=== PATIENT | female | born 2000 | race Caucasian/White ===

== ENCOUNTER 2022-11-03 12:32 | Emergency (ER) | payer OTHER, SELFPAY ==
[2022-11-03 12:43] VITALS: BP 132/69; PULSE 105; RESP 18; TEMP 36.9; O2SAT 97; BMI 23.1
--- NOTE | 2022-11-03 13:19 | USR_ITS ---
PROCEDURE INFORMATION: Exam: US , Limited Exam date and time: 11/03/2022 1:34 PM Age: 22 years old Clinical indication: complicated by abdominal or pelvic pain; Lower; Second trimester (14 weeks 0 days to 27 weeks 6 days); Gestational age or lmp: 15w4d; ; Additional info: 15 weeks gestation and abd pain LABS AND CLINICAL REPORTS: Last menstrual period start date: 07/17/2022 Gestational age (Established): 15 w 4 d Estimated due date (Established): 04/23/2023 TECHNIQUE: Imaging protocol: Real-time ultrasound of the maternal uterus with image documentation. Exam focused on the clinical indication. COMPARISON: No relevant prior studies available. FINDINGS: Gestation: Single live intrauterine gestation. heart rate: 150 bpm. presentation: Breech Placenta: Anterior grade 0 placenta without previa. No subchorionic hemorrhage. MATERNAL: Cervix: The cervix is long and closed. US/US OB >= 14 weeks fetus [id number] IMPRESSION: Single live intrauterine . No apparent complications.
--- NOTE | 2022-11-03 13:22 | W.ED.FEMALGU ---
Documented by User: GORDON Sanchez 11/03/22 15:14 HPI - Female Genitourinary General: Chief complaint: Urogenital-Female Stated complaint: 15 week preg abd and low back pain Time Seen by Provider: 11/03/22 12:38 History of Present Illness: Patient is a 22-year-old female that presents to the emergency department with complaints of suprapubic and low back pain. Onset of symptoms within the last 3 days. Patient is approximately 15 weeks . Last menstrual cycle was 07/17/2022. Patient has had OB care but just moved to [place] from [facility]. This is her second . She denies any nausea and vomiting but does have some diarrhea. She denies vaginal bleeding but does have her normal clear to white discharge SHe reports dysuria and urgency Patient reports are her only routine medication is multivitamin and aspirin daily patient was just diagnosed with tachycardia, mitral valve and tricuspid valve regurgitation. Associated symptoms: Deny abdominal pain, headache(s), nausea or vaginal discharge Date of Last Menstrual Period: 07/17/22 Review of Systems General: Reports: 10 or more systems reviewed and unremarkable except in HPI and below Const: Denies: fever(s), chills, change in appetite, change in weight, fatigue or malaise Eyes: Denies: change in vision, eye discomfort, eye discharge or eye redness ENMT: Denies: throat pain, enlarged tonsils, odynophagia, hoarseness, ear or mastoid pain, ear discharge, change in hearing, tinnitus, nasal discharge, nasal congestion, post nasal drip or sinus pain Card: Denies: chest pain, palpitations, irregular heart rhythm, edema, dyspnea on exertion, orthopnea or leg pain with exertion Resp: Denies: dyspnea, productive cough, non-productive cough, wheezing, stridor or chest congestion GI: Denies: abdominal pain, nausea, vomiting, dysphagia, diarrhea, constipation, bloating, GI cramping or hematochezia : Reports: difficulty voiding, dysuria, urinary frequency and urinary urgency; Denies: flank pain, urinary hesitancy, oliguria, hematuria, vaginal odor, vaginal bleeding or vaginal discharge Musc: Denies: neck pain, back pain, extremity pain, joint pain, joint swelling, joint redness, joint warmth or muscle weakness Skin/Breast: Denies: rash, pruritus, erythema, photosensitivity or new lesions Neuro: Denies: headache(s) or weakness in extremities Endo: Denies: polyuria, polydipsia or tired all the time Rishi/Lymph: Denies: easy bruising or easy bleeding [facility] Female Reproductive History: Date of last menstrual period: 07/17/22 Physical Exam Const: COMMON NORMALS: no acute distress, patient oriented x3 and alert GENERAL APPEARANCE: cooperative ORIENTATION/CONSCIOUSNESS: Yes awake, Yes oriented to person, Yes oriented to place and Yes oriented to time Neck/C-Spine: COMMON NORMALS: full ROM GENERAL: Yes normal visual inspection Lymph: LYMPHATIC: no lymphadenopathy noted Chest: COMMONS NORMALS: normal inspection of the chest Breast/axilla inspection: Yes no chest deformity, asymmetry, normal contours, no nodules, masses, tenderness Resp: COMMON NORMALS: normal respiratory effort, No retractions, No use of accessory muscles and clear to auscultation bilaterally EFFORT & INSPECTION: Yes able to speak in complete sentences and Yes symmetric chest movement AUSCULTATION: clear to auscultation bilaterally Cardio: COMMON NORMALS: regular rate, regular rhythm and Peripheral pulses 2+ throughout RATE: regular rate RHYTHM: regular rhythm PERIPHERAL PULSES: Peripheral pulses 2+ throughout GI: COMMON NORMALS: Soft to palpation (Soft and upper quadrant) INSPECTION: Yes normal to inspection and Yes gravid abdomen AUSCULTATION: Yes normoactive bowel sounds PALPATION: Yes Soft to palpation (Soft and upper quadrant), Yes Firmness to palpation present (GI) (Firm in lower quadrants and suprapubic), Yes Tenderness to palpation present (GI) (Tender over uterus midline lower quadrants), No Guarding due to palpation present (GI), No Rigid due to palpation and No Pulsatile mass present RECTAL EXAM: deferred : COMMON NORMALS: Yes no CVA tenderness BLADDER/KIDNEY EXAM: Yes bladder normal to palpation and Yes no CVA tenderness BIMANUAL EXAM - VAGINA & UTERUS: Yes bladder normal to palpation UTERUS PALPATION: Yes Uterus tender Back/Pelvis: COMMON NORMALS: no CVA tenderness Extremity: COMMON NORMALS: normal to inspection GENERAL: Yes normal exam except as noted Neuro: COMMON NORMALS: patient oriented x3 SENSORIUM/ORIENTATION: Yes alert, Yes oriented to person, Yes oriented to place and Yes oriented to time CRANIAL NERVES: Yes CN normal except as noted Psych: COMMON NORMALS: mental status grossly normal, Normal thought process present, cooperative, activity/motor behavior normal, denies homicidal ideation and denies suicidal ideation THOUGHT PROCESS: Normal thought process present Skin: COMMON NORMALS: no rashes or lesions noted, no wounds and turgor normal GENERAL SKIN EXAM: no rashes or lesions noted and turgor normal Course Vital Signs: Vital signs: Vital Signs Temperature 98.4 F 11/03/22 12:43 Pulse Rate 105 H 11/03/22 12:43 Respiratory Rate 18 11/03/22 12:43 Blood Pressure 132/69 11/03/22 12:43 Pulse Oximetry 97 11/03/22 12:43 Oxygen Delivery Me thod 11/03/22 12:43 MDM - Female Medical Decision Making Patient was evaluated in the emergency department for the first time today. She is approximately 15 weeks with second . Last menstrual period was July 17, 2022. Patient has been seen by OB that was in [facility]. Has not followed up recently. She presents with abdominal tenderness, low back pain. Differential diagnoses include extrauterine , threatened miscarriage, urinary tract infection, gastroenteritis, bacterial vaginosis, and round ligament pain. we have obtained an ultrasound OB and laboratory studies that include urinalysis, CBC, CMP, Rh type, and hCG quant. While awaiting that I have also sent consults to case management for cardiology and OB referrals. Patient was recently diagnosed with sustained tachycardia, mitral and tricuspid valve regurgitation. She has an appointment in [address] [place] [address] at the end of this month and she has been told to keep that appointment until contacted by cardiology in [place]. Patient has a HCG of 30k, she is Rh-, her US FINDINGS: Gestation: Single live intrauterine gestation. heart rate: 150 bpm. presentation: Breech Placenta: Anterior grade 0 placenta without previa. No subchorionic hemorrhage. MATERNAL: Cervix: The cervix is long and closed. Patient discussed the above-mentioned findings. I did offer a pelvic exam to rule out sexually transmitted infection and bacterial vaginosis. Patient has declined. She would like to follow-up with establishing OB care as well as primary care. She will return to the emergency department for new concerning or worsening symptoms. All questions were answered and written and verbal instructions provided Lab Data 11/03/22 13:50 11/03/22 13:50 Radiology Impressions Ultrasound 11/03/22 13:19 IMPRESSION: Single live intrauterine . No apparent complications. Laboratory Results WBC 9.6 10^3/uL (4.0-10.0) 11/03/22 13:50 RBC 4.61 10^6/uL (4.1-5.3) 11/03/22 13:50 Hgb 13.7 g/dL (11.5-15.3) 11/03/22 13:50 Hct 39.5 % (37.0-47.0) 11/03/22 13:50 MCV 85.7 fl (81-99) 11/03/22 13:50 MCH 29.7 pg (28.0-34.0) 11/03/22 13:50 MCHC 34.7 g/dL (30.0-36.0) 11/03/22 13:50 RDW 12.1 % (12.1-15.1) 11/03/22 13:50 Plt Count 212 10^3/cmm (130-400) 11/03/22 13:50 MPV 9.9 fL (7.4-10.4) 11/03/22 13:50 Neut % (Auto) 79.9 % 11/03/22 13:50 Lymph % (Auto) 13.6 % 11/03/22 13:50 [place] % (Auto) 5.7 % 11/03/22 13:50 Eos % (Auto) 0.3 % 11/03/22 13:50 Baso % (Auto) 0.3 % 11/03/22 13:50 Neut # (Auto) 7.70 10^3/uL (1.8-7.7) 11/03/22 13:50 Lymph # (Auto) 1.3 10^3/uL (0.8-4.8) 11/03/22 13:50 [place] # (Auto) 0.6 10^3/uL (0.2-0.9) 11/03/22 13:50 Eos # (Auto) 0.0 10^3/uL (0.0-0.8) 11/03/22 13:50 Baso # (Auto) 0.0 10^3/uL (0.0-0.1) 11/03/22 13:50 Nucleated RBC % (auto) 0 % 11/03/22 13:50 Nucleated RBCs # 0.0 /100WBC 11/03/22 13:50 Sodium 135 mmol/L (136-145) L 11/03/22 13:50 Potassium 3.9 mmol/L (3.5-5.1) 11/03/22 13:50 Chloride 102 mmol/L (98-107) 11/03/22 13:50 Carbon Dioxide 22 mmol/L (22-29) 11/03/22 13:50 Anion Gap 14.9 (5-19) 11/03/22 13:50 BUN 5 mg/dL (6-20) L 11/03/22 13:50 Creatinine 0.4 mg/dL (0.5-0.9) L 11/03/22 13:50 GFR Calculation 199.6 mL/min (90-130) H 11/03/22 13:50 Glucose 67 mg/dL (65-115) 11/03/22 13:50 Calculated Osmolality 276 mOsm/kg (285-295) L 11/03/22 13:50 Calcium 9.1 mg/dL (8.5-10.5) 11/03/22 13:50 Ser , Semi-Qnt 16398.00 mIU/mL 11/03/22 13:50 Urine Color Straw (Yellow) 11/03/22 13:25 Urine Appearance Clear (CLEAR) 11/03/22 13:25 Urine pH 7 (5-7) 11/03/22 13:25 Ur Specific [place] 1.005 (1.005-1.030) 11/03/22 13:25 Urine Protein Neg (Negative) 11/03/22 13:25 Urine Glucose (UA) Norm (Normal) 11/03/22 13:25 Urine Ketones Negative (Negative) 11/03/22 13:25 Urine Blood Neg (Negative) 11/03/22 13:25 Urine Nitrate Negative (Negative) 11/03/22 13:25 Urine Bilirubin Neg (Negative) 11/03/22 13:25 Urine Urobilinogen Norm mg/dL (Negative) 11/03/22 13:25 Ur Leukocyte Esterase Negative (Negative) 11/03/22 13:25 Rho(D) Type Negative 11/03/22 13:50 Discharge Plan Discharge Patient Disposition: Home Clinical Impression: Abdominal pain during intrauterine , Pain of round ligament Condition: Stable Prescriptions: No Action aspirin 81 mg Tablet,Chewable 81 mg PO DAILY Discharge Orders: Discharge ED (Routine); Ordered 11/03/22 Ordered By: Hermilo Esqueda Patient Instructions: Abdominal Pain (ED), Opioid Safety, Pain Management Activity Restrictions/Additional Instructions: public health outreach worker and or OB and cardiology clinics will be reaching out to you to set up appointments. Keep your other appointments until you have follow-up established here Continue taking medications as they are prescribed Establish primary care for you, and your family. Please return to the emergency department for new concerning or worsening symptoms. Coding Level of Care Code ED Group Manager for [facility] Fwd Documented by User: Justin Hernandes DO 11/04/22 07:04 HPI - Female Genitourinary General: Chief complaint: Urogenital-Female Stated complaint: 15 week preg abd and low back pain Time Seen by Provider: 11/03/22 12:38 Course Vital Signs: Vital signs: Vital Signs Temperature 98.4 F 11/03/22 12:43 Pulse Rate 105 H 11/03/22 12:43 Respiratory Rate 18 11/03/22 12:43 Blood Pressure 132/69 11/03/22 12:43 Pulse Oximetry 97 11/03/22 12:43 Oxygen Delivery Me thod 11/03/22 12:43 MDM - Female Medical Decision Making Patient was evaluated in the emergency department for the first time today. She is approximately 15 weeks with second . Last menstrual period was July 17, 2022. Patient has been seen by OB that was in [facility]. Has not followed up recently. She presents with abdominal tenderness, low back pain. Differential diagnoses include extrauterine , threatened miscarriage, urinary tract infection, gastroenteritis, bacterial vaginosis, and round ligament pain. we have obtained an ultrasound OB and laboratory studies that include urinalysis, CBC, CMP, Rh type, and hCG quant. While awaiting that I have also sent consults to case management for cardiology and OB referrals. Patient was recently diagnosed with sustained tachycardia, mitral and tricuspid valve regurgitation. She has an appointment in [address] [place] [address] at the end of this month and she has been told to keep that appointment until contacted by cardiology in [place]. Patient has a HCG of 30k, she is Rh-, her US FINDINGS: Gestation: Single live intrauterine gestation. heart rate: 150 bpm. presentation: Breech Placenta: Anterior grade 0 placenta without previa. No subchorionic hemorrhage. MATERNAL: Cervix: The cervix is long and closed. Patient discussed the above-mentioned findings. I did offer a pelvic exam to rule out sexually transmitted infection and bacterial vaginosis. Patient has declined. She would like to follow-up with establishing OB care as well as primary care. She will return to the emergency department for new concerning or worsening symptoms. All questions were answered and written and verbal instructions provided Chart reviewed and patient discussed with midlevel. Agree with assessment and plan. Lab Data 11/03/22 13:50 11/03/22 13:50 Radiology Impressions Ultrasound 11/03/22 13:19 IMPRESSION: Single live intrauterine . No apparent complications. Laboratory Results WBC 9.6 10^3/uL (4.0-10.0) 11/03/22 13:50 RBC 4.61 10^6/uL (4.1-5.3) 11/03/22 13:50 Hgb 13.7 g/dL (11.5-15.3) 11/03/22 13:50 Hct 39.5 % (37.0-47.0) 11/03/22 13:50 MCV 85.7 fl (81-99) 11/03/22 13:50 MCH 29.7 pg (28.0-34.0) 11/03/22 13:50 MCHC 34.7 g/dL (30.0-36.0) 11/03/22 13:50 RDW 12.1 % (12.1-15.1) 11/03/22 13:50 Plt Count 212 10^3/cmm (130-400) 11/03/22 13:50 MPV 9.9 fL (7.4-10.4) 11/03/22 13:50 Neut % (Auto) 79.9 % 11/03/22 13:50 Lymph % (Auto) 13.6 % 11/03/22 13:50 [place] % (Auto) 5.7 % 11/03/22 13:50 Eos % (Auto) 0.3 % 11/03/22 13:50 Baso % (Auto) 0.3 % 11/03/22 13:50 Neut # (Auto) 7.70 10^3/uL (1.8-7.7) 11/03/22 13:50 Lymph # (Auto) 1.3 10^3/uL (0.8-4.8) 11/03/22 13:50 [place] # (Auto) 0.6 10^3/uL (0.2-0.9) 11/03/22 13:50 Eos # (Auto) 0.0 10^3/uL (0.0-0.8) 11/03/22 13:50 Baso # (Auto) 0.0 10^3/uL (0.0-0.1) 11/03/22 13:50 Nucleated RBC % (auto) 0 % 11/03/22 13:50 Nucleated RBCs # 0.0 /100WBC 11/03/22 13:50 Sodium 135 mmol/L (136-145) L 11/03/22 13:50 Potassium 3.9 mmol/L (3.5-5.1) 11/03/22 13:50 Chloride 102 mmol/L (98-107) 11/03/22 13:50 Carbon Dioxide 22 mmol/L (22-29) 11/03/22 13:50 Anion Gap 14.9 (5-19) 11/03/22 13:50 BUN 5 mg/dL (6-20) L 11/03/22 13:50 Creatinine 0.4 mg/dL (0.5-0.9) L 11/03/22 13:50 GFR Calculation 199.6 mL/min (90-130) H 11/03/22 13:50 Glucose 67 mg/dL (65-115) 11/03/22 13:50 Calculated Osmolality 276 mOsm/kg (285-295) L 11/03/22 13:50 Calcium 9.1 mg/dL (8.5-10.5) 11/03/22 13:50 Ser , Semi-Qnt 95828.00 mIU/mL 11/03/22 13:50 Urine Color Straw (Yellow) 11/03/22 13:25 Urine Appearance Clear (CLEAR) 11/03/22 13:25 Urine pH 7 (5-7) 11/03/22 13:25 Ur Specific [place] 1.005 (1.005-1.030) 11/03/22 13:25 Urine Protein Neg (Negative) 11/03/22 13:25 Urine Glucose (UA) Norm (Normal) 11/03/22 13:25 Urine Ketones Negative (Negative) 11/03/22 13:25 Urine Blood Neg (Negative) 11/03/22 13:25 Urine Nitrate Negative (Negative) 11/03/22 13:25 Urine Bilirubin Neg (Negative) 11/03/22 13:25 Urine Urobilinogen Norm mg/dL (Negative) 11/03/22 13:25 Ur Leukocyte Esterase Negative (Negative) 11/03/22 13:25 Rho(D) Type Negative 11/03/22 13:50 Discharge Plan Discharge Patient Disposition: Home Clinical Impression: Abdominal pain during intrauterine , Pain of round ligament Condition: Stable Prescriptions: No Action aspirin 81 mg Tablet,Chewable 81 mg PO DAILY Discharge Orders: Discharge ED (Routine); Ordered 11/03/22 Ordered By: Hermilo Esqueda Patient Instructions: Abdominal Pain (ED), Opioid Safety, Pain Management Activity Restrictions/Additional Instructions: public health outreach worker and or OB and cardiology clinics will be reaching out to you to set up appointments. Keep your other appointments until you have follow-up established here Continue taking medications as they are prescribed Establish primary care for you, and your family. Please return to the emergency department for new concerning or worsening symptoms. Coding Level of Care Code ED Group Manager for Duong Ash
[2022-11-03 13:29] LABS: Add Urine Microscopic? NO; Charge for UA Resulting for Rev
[2022-11-03 13:36] LABS: Bilirubin Urine Neg (Negative); Blood Urine Neg (Negative); Glucose Urine UA Norm (Normal); Ketones Urine Negative (Negative); Leukocyte Esterase Urine Negative (Negative); Nitrate Urine Negative (Negative); Protein Urine Neg (Negative); Specific Gravity, Urine 1.005 (1.005-1.030); Urine Appearance Clear (CLEAR); Urine Color Straw (Yellow); Urobilinogen Urine Norm (Negative); pH Urine 7 (5-7)
[2022-11-03 14:07] LABS: Basophils % 0.3 %; Eosinophils % 0.3 %; Hematocrit 39.5 % (37.0-47.0); Hemoglobin 13.7 g/dL (11.5-15.3); Lymphocytes # 1.3 10^3/uL (0.8-4.8); Lymphocytes % 13.6 %; Mean Corpuscular HGB Conc 34.7 g/dL (30.0-36.0); Mean Corpuscular Hemoglobin 29.7 pg (28.0-34.0); Mean Corpuscular Volume 85.7 fl (81-99); Mean Platelet Volume 9.9 fL (7.4-10.4); Monocytes # 0.6 10^3/uL (0.2-0.9); Monocytes % 5.7 %; Neutrophils % 79.9 %; Nucleated Red Blood Cells % 0 %; Platelet Count 212 10^3/cmm (130-400); Red Blood Count 4.61 10^6/uL (4.1-5.3); Red Cell Distribution Width 12.1 % (12.1-15.1); White Blood Count 9.6 10^3/uL (4.0-10.0)
[2022-11-03 14:42] LABS: Anion Gap 14.9 (5-19); Blood Urea Nitrogen 5 mg/dL (6-20); Calcium 9.1 mg/dL (8.5-10.5); Carbon Dioxide 22 mmol/L (22-29); Chloride 102 mmol/L (98-107); Glomerular Filtration Rate 199.6 mL/min (90-130); Glucose 67 mg/dL (65-115); Osmolality Calculated 276 mOsm/kg (285-295); Potassium 3.9 mmol/L (3.5-5.1); Sodium 135 mmol/L (136-145)
--- NOTE | 2022-11-04 10:59 | DCPLANNER ---
Addendum entered by Merced Huddleston 12/31/22 15:04: Patient had a follow up appointment scheduled with heart care - patient did not attend appointment. Addendum entered by Merced Huddleston 11/07/22 07:28: mobile development manager received the following message from [facility] regarding follow up appointment: Attempted to call patient. No vm setup at this time. Mailed patient appt for 12/26 @ 1:15. Thank you. On 11/05/22 @ 10:17 Rocio Hanson Wrote To [facility] Front Office Attempted to call patient. No vm setup at this time. On 11/04/22 @ 15:20 Rocio Hanson Wrote To Heart Care Front Office Attempted to call patient. No vm setup at this time. Addendum entered by Merced Huddleston 11/05/22 07:57: mobile development manager received the following message from [facility] regarding follow up appointment: Attempted to call patient. No vm setup at this time. Original Note: mobile development manager had message to schedule a follow up appointment for patient with cardiology. mobile development manager sent patients information to the front office staff at [facility]. Patients information will be printed and reviewed. Clinic will call patient with appointment information.
--- NOTE | 2022-11-04 11:05 | DCPLANNER ---
Addendum entered by Merced Huddleston 11/05/22 08:03: materials and processes manager received the following message from [facility] regarding follow up appointment: 1st attempted call to schedule. Patient has voicemail that is not set up. Original Note: materials and processes manager had message to schedule a follow up appointment for patient with [facility]. materials and processes manager sent patients information to the front office staff at [facility] . Patients information will be printed and reviewed. Clinic will call patient with appointment information.
--- NOTE | 2022-11-07 11:17 | DCPLANNER ---
Addendum entered by Merced Huddleston 11/07/22 13:13: jewelry store manager called patient due to no primary care physician - no answer at this time Original Note: 11.06.22 - TCM called patient due to no primary care physician - no answer at this time
== END 2022-11-03 15:30 | disposition home or self-care (01) ==
PROVIDERS: Emergency Provider Nurse Practitioner
DX: O26.892 Other specified pregnancy related conditions, second trimester (principal); R10.2 Pelvic and perineal pain; Z3A.15 15 weeks gestation of pregnancy; Z79.82 Long term (current) use of aspirin
CPT/HCPCS: 36415; 76805; 80048; 81003; 84702; 85025; 99284

== ENCOUNTER 2023-10-07 16:13 | Emergency (ER) | payer OTHER, SELFPAY ==
[2023-10-07 16:13] VITALS: BP 115/77; PULSE 103; RESP 14; TEMP 36.7; O2SAT 98
--- NOTE | 2023-10-07 16:36 | ED_ITS ---
HPI - Abdominal Pain 2 General: Chief Complaint: Abdominal Pain Stated Complaint: abd pain Time Seen by Provider: 10/07/23 16:36 History of Present Illness: 23-year-old female presents to the emerg ency department with complaints of right lower quadrant abdominal pain for the previous 1 week. She states the pain is worse if you push on the area. She states her current pain is a 5 out of 10 and constant. She states it is a dull aching type pain. She does endorse nausea without vomiting. She states that she did have gallbladder issues in the past when she was but has not had any abdominal surgery for her gallbladder or appendix. She denies fevers chills or night sweats. She states she did have several episodes of diarrhea over the past few days. Associated Symptoms: Reports nausea Review of Systems 2 General: Reports: 10 or more systems reviewed and unremarkable except in HPI and below GI: Reports: abdominal pain and nausea Physical Exam 2 Const: COMMON NORMALS: no acute distress, patient oriented x3 and alert HENMT: COMMON NORMALS: normocephalic, atraumatic and moist oral mucous membranes HEAD & SCALP: normocephalic and atraumatic Eye: COMMON NORMALS: Equal, round and reactive pupils present and EOMs intact bilaterally PUPIL: Yes Equal, round and reactive pupils present Neck/C-Spine: COMMON NORMALS: full ROM and supple Resp: COMMON NORMALS: normal respiratory effort and clear to auscultation bilaterally AUSCULTATION: clear to auscultation bilaterally Cardio: COMMON NORMALS: regular rate, regular rhythm, S1 normal heart sound present, S2 normal heart sound present and Peripheral pulses 2+ throughout R ATE: regular rate RHYTHM: regular rhythm HEART SOUNDS: S1 normal heart sound present and S2 normal heart sound present PERIPHERAL PULSES: Peripheral pulses 2+ throughout GI: COMMON NORMALS: Soft to palpation INSPECTION: Yes normal to inspection AUSCULTATION: Yes normoactive bowel sounds PALPATION: Yes Soft to palpation and Yes Tenderness to palpation present (GI) Details: RLQ : COMMON NORMALS: Yes no CVA tenderness BLADDER/KIDNEY EXAM: Yes no CVA tenderness Back/Pelvis: COMMON NORMALS: no CVA tenderness and thoracic and lumbar spine normal to inspection Extremity: COMMON NORMALS: normal to inspection, full ROM and capillary refill normal Neuro: COMMON NORMALS: patient oriented x3 SENSORIUM/ORIENTATION: Yes alert Psych: COMMON NORMALS: Normal thought process present, cooperative and speech normal SPEECH: Yes normal speech THOUGHT PROCESS: Normal thought process present Skin: COMMON NORMALS: no rashes or lesions noted and turgor normal GENERAL SKIN EXAM: no rashes or lesions noted and turgor normal Course 2 Vital Signs: Vital signs: Vital Signs Temperature 98.0 F 10/07/23 16:13 Pulse Rate 96 10/07/23 19:18 Respiratory Rate 16 10/07/23 19:18 Blood Pressure 118/86 10/07/23 19:18 Pulse Oximetry 98 10/07/23 19:18 Oxygen Delivery Me thod Room Air 10/07/23 19:16 MDM - Abdominal Pain Medical Decision Making Physical exam completed and documented, I will obtain laboratory evaluation to include a CBC, CMP, lipase, urinalysis, and a CT scan of the patient's abdomen pelvis to evaluate for possible differential diagnosis of bowel obstruction, incarcerated hernia, abdominal wall strain, abdominal wall hematoma, constipation, possible colitis, acute appendicitis, diverticulitis. Medical Records I reviewed the patient's medical records. Lab Data I reviewed the patient's lab results. 10/07/23 16:40 10/07/23 16:40 Labs/Radiology: Radiology Impressions Abdomen/Pelvis CT 10/07/23 17:03 IMPRESSION: 1. Wall thickening of the terminal ileum with reactive mesenteric nodes suggestive of an infectious or inflammatory terminal ileitis. Consider follow-up outpatient GI evaluation to exclude Crohn's disease. 2. Findings raising the question of a low-grade ascending urinary infection on the right. No evidence of pyelonephritis. Correlation with urinalysis is recommended. Laboratory Results WBC 8.19 10^3/uL (3.29-11.43) 10/07/23 16:40 RBC 4.62 10^6/uL (3.85-5.65) 10/07/23 16:40 Hgb 13.10 g/dL (11.27-16.99) 10/07/23 16:40 Hct 38.6 % (36-47) 10/07/23 16:40 MCV 83.5 fl (85-98) L 10/07/23 16:40 MCH 28.4 pg (27-33) 10/07/23 16:40 MCHC 33.9 g/dL (30-55) 10/07/23 16:40 RDW 11.7 % (12.1-15.1) L 10/07/23 16:40 Plt Count 280 10^3/cmm (157-399) 10/07/23 16:40 MPV 9.7 fL (7.4-10.4) 10/07/23 16:40 Neut % (Auto) 71.0 % 10/07/23 16:40 Lymph % (Auto) 19.3 % 10/07/23 16:40 Drew % (Auto) 7.0 % 10/07/23 16:40 Eos % (Auto) 1.8 % 10/07/23 16:40 Baso % (Auto) 0.7 % 10/07/23 16:40 Neut # (Auto) 5.81 10^3/uL (1.8-7.7) 10/07/23 16:40 Lymph # (Auto) 1.6 10^3/uL (0.8-4.8) 10/07/23 16:40 Drew # (Auto) 0.6 10^3/uL (0.2-0.9) 10/07/23 16:40 Eos # (Auto) 0.2 10^3/uL (0.0-0.8) 10/07/23 16:40 Baso # (Auto) 0.1 10^3/uL (0.0-0.1) 10/07/23 16:40 Nucleated RBC % (auto) 0 % 10/07/23 16:40 Nucleated RBCs # 0.0 /100WBC 10/07/23 16:40 Sodium 140 mmol/L (136-145) 10/07/23 16:40 Potassium 3.9 mmol/L (3.5-5.1) 10/07/23 16:40 Chloride 102 mmol/L (98-107) 10/07/23 16:40 Carbon Dioxide 27 mmol/L (22-29) 10/07/23 16:40 Anion Gap 14.9 (5-19) 10/07/23 16:40 BUN 13 mg/dL (6-20) 10/07/23 16:40 Creatinine 0.6 mg/dL (0.5-0.9) 10/07/23 16:40 GFR Calculation 123.9 mL/min (90-130) 10/07/23 16:40 Glucose 108 mg/dL (65-115) 10/07/23 16:40 Calculated Osmolality 291 mOsm/kg (285-295) 10/07/23 16:40 Calcium 9.1 mg/dL (8.5-10.5) 10/07/23 16:40 Total Bilirubin 0.4 mg/dL (0.15-1.2) 10/07/23 16:40 AST 13 U/L (0-32) 10/07/23 16:40 ALT 20 U/L (0-33) 10/07/23 16:40 Alkaline Phosphatase 98 U/L (35-105) 10/07/23 16:40 Total Protein 7.4 g/dL (6.6-8.7) 10/07/23 16:40 Albumin 4.5 g/dL (3.5-5.2) 10/07/23 16:40 Globulin 2.9 g/dL (1.3-4.6) 10/07/23 16:40 Procalcitonin 0.06 ng/mL (0-0.5) 10/07/23 16:40 HCG, Qual Negative (Negative) 10/07/23 16:40 Urine Color Yellow (Yellow) 10/07/23 16:40 Urine Appearance Sl hazy (CLEAR) A 10/07/23 16:40 Urine pH 7 (5-7) 10/07/23 16:40 Ur Specific [place] 1.015 (1.005-1.030) 10/07/23 16:40 Urine Protein Neg (Negative) 10/07/23 16:40 Urine Glucose (UA) Norm (Normal) 10/07/23 16:40 Urine Ketones Negative (Negative) 10/07/23 16:40 Urine Blood Neg (Negative) 10/07/23 16:40 Urine Nitrate Negative (Negative) 10/07/23 16:40 Urine Bilirubin Neg (Negative) 10/07/23 16:40 Urine Urobilinogen Norm mg/dL (Negative) 10/07/23 16:40 Ur Leukocyte Esterase Trace (Negative) H 10/07/23 16:40 Urine RBC 0-4 /hpf (0-2) H 10/07/23 16:40 Urine WBC 0-4 /hpf (0-5) H 10/07/23 16:40 Ur Squamous Epith Cells 5-10 /hpf (0-5) H 10/07/23 16:40 Amorphous Sediment Not Reportable 10/07/23 16:40 Urine Bacteria Trace /hpf (NONE) 10/07/23 16:40 Urine Mucus 1+ /hpf 10/07/23 16:40 All radiology interpretation(s) finalized by discharge Discharge Plan Discharge Patient Disposition: Home Clinical Impression: Ileitis, terminal Qualifiers: Digestive disease complication type: unspecified complication Qualified Code(s): K50.019 - Crohn's disease of small intestine with unspecified complications Abdominal pain Qualifiers: Abdominal location: right lower quadrant Qualified Code(s): R10.31 - Right lower quadrant pain UTI (urinary tract infection) Qualifiers: Urinary tract infection type: site unspecified Hematuria presence: without hematuria Qualified Code(s): N39.0 - Urinary tract infection, site not specified Condition: Stable Prescriptions: New levofloxacin 750 mg tablet 750 mg PO DAILY 7 Days Qty: 7 0RF amoxicillin-pot clavulanate 875-125 mg tablet 1 tab PO BID Qty: 14 0RF No Action aspirin 81 mg Tablet,Chewable 81 mg PO DAILY Discharge Orders: Discharge ED (Routine); Ordered 10/07/23 Ordered By: Michael Chen Referrals: Kranthi Hermosillo DO [Physician] - Discharge Diet: Usual diet Discharge Activity: Resume usual activity Patient Instructions: Abdominal Pain (ED), Opioid Safety, Pain Management Coding Level of Care Code ED General Administrator for Duong Ash
[2023-10-07 16:47] LABS: Basophils # 0.1 10^3/uL (0.0-0.1); Basophils % 0.7 %; Eosinophils # 0.2 10^3/uL (0.0-0.8); Eosinophils % 1.8 %; Hematocrit 38.6 % (36-47); Lymphocytes # 1.6 10^3/uL (0.8-4.8); Lymphocytes % 19.3 %; Mean Corpuscular HGB Conc 33.9 g/dL (30-55); Mean Corpuscular Hemoglobin 28.4 pg (27-33); Mean Corpuscular Volume 83.5 fl (85-98); Mean Platelet Volume 9.7 fL (7.4-10.4); Monocytes # 0.6 10^3/uL (0.2-0.9); Neutrophils # 5.81 10^3/uL (1.8-7.7); Nucleated Red Blood Cells % 0 %; Platelet Count 280 10^3/cmm (157-399); Red Blood Count 4.62 10^6/uL (3.85-5.65); Red Cell Distribution Width 11.7 % (12.1-15.1); White Blood Count 8.19 10^3/uL (3.29-11.43)
--- NOTE | 2023-10-07 17:03 | CTR_ITS ---
PROCEDURE INFORMATION: Exam: CT Abdomen And Pelvis With Contrast Exam date and time: 10/07/2023 5:55 PM Age: 23 years old Clinical indication: Abdominal pain; Localized; Right lower quadrant (rlq); Additional info: Rlq abd pain TECHNIQUE: Imaging protocol: Computed tomography of the abdomen and pelvis with contrast. Radiation optimization: All CT scans at this facility use at least one of these dose optimization techniques: automated exposure control; mA and/or kV adjustment per patient size (includes targeted exams where dose is matched to clinical indication); or iterative reconstruction. Contrast material: OMNI 350; Contrast volume: 100 ml; Contrast route: INTRAVENOUS (IV); COMPARISON: US OB >= 14 weeks fetus [id number] 11/03/2022 1:34 PM RADIATION DOSE METRICS: Total DLP (mGy-cm): 382 FINDINGS: Lungs: Subsegmental bibasilar atelectasis. The visualized lung bases are otherwise grossly clear. Pectus deformity noted. Diaphragm: No evidence of diaphragmatic defect. Liver: No focal hepatic lesion. Gallbladder and bile ducts: Unremarkable. No intra-hepatic or extra-hepatic biliary dilatation. Pancreas: Unremarkable. Spleen: Unremarkable. Adrenal glands: Unremarkable. Kidneys and ureters: There are simple appearing left-sided renal cysts for which dedicated imaging follow-up is not required. Otherwise no evidence of renal parenchymal abnormality. No hydronephrosis or ureteral stone. There is very mild periureteral haziness and urothelial hyperenhancement of the right ureter. Stomach and bowel: No evidence of bowel obstruction. There is moderate thickening of the terminal ileum, which can be seen with an infectious or inflammatory terminal ileitis (for example, image 51 of the axial series 5). There are multiple reactive mesenteric nodes. Appendix: Normal appendix. Intraperitoneal space: No evidence of free air or fluid collection. Vasculature: No aneurysmal dilatation or dissection of the abdominal aorta. The celiac trunk, SMA and AGUS are grossly patent. No evidence of IVC thrombus. The portal vein, SMV and splenic veins are grossly patent. Lymph nodes: No adenopathy. Urinary bladder: Mild diffuse bladder wall haziness. Otherwise grossly unremarkable. Reproductive: Retroverted uterus with IUD in place in expected position. Bones/joints: No evidence of acute fracture or aggressive osseous lesion. Soft tissues: No evidence of fluid collection or hematoma in the superficial soft tissues. CT/CT abdomen pelvis w con* [id number] IMPRESSION: 1. Wall thickening of the terminal ileum with reactive mesenteric nodes suggestive of an infectious or inflammatory terminal ileitis. Consider follow-up outpatient GI evaluation to exclude Crohn's disease. 2. Findings raising the question of a low-grade ascending urinary infection on the right. No evidence of pyelonephritis. Correlation with urinalysis is recommended.
[2023-10-07 17:04] LABS: HCG Qualitative Urine. Negative (Negative)
[2023-10-07 17:15] LABS: Alanine Aminotransferase 20 U/L (0-33); Albumin Level 4.5 g/dL (3.5-5.2); Alkaline Phosphatase 98 U/L (35-105); Anion Gap 14.9 (5-19); Aspartate Amino Transferase 13 U/L (0-32); Blood Urea Nitrogen 13 mg/dL (6-20); Calcium 9.1 mg/dL (8.5-10.5); Carbon Dioxide 27 mmol/L (22-29); Chloride 102 mmol/L (98-107); Creatinine Clr Calc Pharmacy 129.8532; Globulin 2.9 g/dL (1.3-4.6); Glomerular Filtration Rate 123.9 mL/min (90-130); Glucose 108 mg/dL (65-115); Osmolality Calculated 291 mOsm/kg (285-295); Potassium 3.9 mmol/L (3.5-5.1); Sodium 140 mmol/L (136-145); Total Bilirubin 0.4 mg/dL (0.15-1.2); Total Protein 7.4 g/dL (6.6-8.7)
[2023-10-07 17:20] LABS: Procalcitonin 0.06 ng/mL (0-0.5)
[2023-10-07] MEDS: iohexol 350 mg/mL 500 mL Btl (per mL) IV (18:04)
[2023-10-07 18:44] LABS: Add Urine Microscopic? YES; Bilirubin Urine Neg (Negative); Blood Urine Neg (Negative); Glucose Urine UA Norm (Normal); Ketones Urine Negative (Negative); Leukocyte Esterase Urine Trace (Negative); Nitrate Urine Negative (Negative); Protein Urine Neg (Negative); Specific Gravity, Urine 1.015 (1.005-1.030); Urine Appearance SL Hazy (CLEAR); Urine Color Yellow (Yellow); Urobilinogen Urine Norm (Negative); pH Urine 7 (5-7)
[2023-10-07 18:50] VITALS: BP 118/86; PULSE 87; O2SAT 97
[2023-10-07 18:58] LABS: Add Urine Culture? No; Bacteria Urine TRACE /hpf; Mucus Urine 1+ /hpf; RBC Urine 0-4 /hpf (0-2); WBC Urine 0-4 /hpf (0-5)
[2023-10-07 19:16] VITALS: BP 118/86; PULSE 96; RESP 16; O2SAT 98
[2023-10-07 19:18] VITALS: BP 118/86; PULSE 96; RESP 16; O2SAT 98
== END 2023-10-07 19:19 | disposition home or self-care (01) ==
PROVIDERS: Emergency Provider Internal Medicine
DX: K50.019 Crohn's disease of small intestine with unspecified complications (principal); R10.31 Right lower quadrant pain; N39.0 Urinary tract infection, site not specified; Z79.82 Long term (current) use of aspirin
CPT/HCPCS: 36415; 74177; 80053; 81001; 81025; 84145; 85025; 99284; Q9967

== ENCOUNTER → 2024-11-24 09:35 | Outpatient (BNVA) | payer OTHER, MEDICAID, SELFPAY | PROVIDERS: Visit Provider Nurse Practitioner Women's Health | DX: N91.2 Amenorrhea, unspecified (principal) | CPT/HCPCS: 81025; 84315; 84702; 86850; 86900 ==

== ENCOUNTER → 2024-12-02 11:14 | Outpatient (BNVA) | payer OTHER, MEDICAID, SELFPAY | PROVIDERS: Visit Provider Nurse Practitioner Women's Health | DX: O26.891 Other specified pregnancy related conditions, first trimester (principal); Z3A.08 8 weeks gestation of pregnancy | CPT/HCPCS: 76801 ==

== ENCOUNTER → 2024-12-22 11:29 | Outpatient (BNVA) | payer OTHER, MEDICAID, SELFPAY | PROVIDERS: Visit Provider Nurse Practitioner Women's Health | DX: Z34.91 Encounter for supervision of normal pregnancy, unspecified, first trimester (principal); Z67.91 Unspecified blood type, Rh negative; L29.9 Pruritus, unspecified | CPT/HCPCS: 80307; 84315; 84443; 85025; 86592; 86762; 86803; 87086; 87340; 87491; 87591; 87661; 87806 ==

== ENCOUNTER → 2025-01-03 13:31 | Outpatient (BNVA) | payer MEDICAID, SELFPAY | PROVIDERS: Visit Provider Obstetrics & Gynecology | DX: Z34.90 Encounter for supervision of normal pregnancy, unspecified, unspecified trimester (principal) | CPT/HCPCS: 84315; 88175 ==

== ENCOUNTER → 2025-01-31 14:26 | Outpatient (BNVA) | payer OTHER, MEDICAID, SELFPAY | PROVIDERS: Visit Provider Nurse Practitioner Women's Health | DX: Z34.90 Encounter for supervision of normal pregnancy, unspecified, unspecified trimester (principal) | CPT/HCPCS: 82105; 84315 ==